=== PATIENT | male | born 2000 | race Two or more races ===

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

== ENCOUNTER 2020-11-01 19:25 | Emergency (ER) | payer OTHER ==
[~2020-11-01] VITALS: Ht 165.1 cm; Wt 56.2 kg
[2020-11-01] MEDS ORDERED: ASPIRINA (21:03)
[2020-11-02] MEDS ORDERED: MUCINEX DM ER1 EAC1 PO (00:27)
[2020-11-02] MEDS ORDERED: AZITHROMYCIN500 MG PO (00:27)
[2020-11-02] MEDS ORDERED: ACETAMINOPHEN650 M2 PO (00:27)
[2020-11-02] MEDS ORDERED: INTESTINEX680 M1 PO (00:27)
== END 2020-11-02 00:40 | disposition home or self-care (01) ==
LOC: ER 19:25 → EMR PED 19:25
DX: R11.2 Nausea with vomiting, unspecified (principal); R53.81 Other malaise; R50.9 Fever, unspecified; Z03.818 Encounter for observation for suspected exposure to other biological agents ruled out